=== PATIENT | male | born 1975 | race Two or more races ===

== ENCOUNTER 2020-05-14 08:43 | Day surgery (SDC) | payer OTHER, SELFPAY ==
[~2020-05-14] VITALS: Ht 188 cm; Wt 122.5 kg
[2020-05-14] MEDS ORDERED: ALBUTEROL HFA MDI 90 MCG/ACTUATION 18 GM INH ONE (11:10)
[2020-05-14] MEDS ORDERED: fentaNYL citrate 0.05 MG/ML VIAL ONE (11:10)
[2020-05-14] MEDS ORDERED: SUGAMMADEX SODIUM 200 MG/2 ML VIAL IV ONE (11:10)
[2020-05-14] MEDS ORDERED: SUCCINYLCHOLINE CHLORIDE 200 MG/10 ML VIAL IVP ONE (11:10)
[2020-05-14] MEDS ORDERED: MIDAZOLAM 2 MG/2 ML VIAL ONE (11:10)
[2020-05-14] MEDS ORDERED: GLYCOPYRROLATE 0.2 MG/ML VIAL ONE (11:10)
[2020-05-14] MEDS ORDERED: PROPOFOL 200 MG/20 ML VIAL IV ONE (11:10)
[2020-05-14] MEDS ORDERED: SEVOFLURANE 250 ML BTL INH ONE (11:10)
[2020-05-14] MEDS ORDERED: ONDANSETRON 4 MG/2 ML VIAL ONE (11:10)
[2020-05-14] MEDS ORDERED: ROCURONIUM 50 MG/5 ML VIAL IV ONE (11:10)
[2020-05-14] MEDS ORDERED: DEXAMETHASONE 4 MG/ML VIAL ONE (11:10)
[2020-05-14] MEDS ORDERED: MEPERIDINE 25 MG/ML SYR ONE (12:58)
[2020-05-14] MEDS: MEPERIDINE 25 MG/ML SYR IVP SCH ×2 (13:00→13:10)
[2020-05-14] MEDS ORDERED: HYDROmorphone PFS 2 MG/ML SYR ONE (13:25)
[2020-05-14] MEDS: HYDROmorphone 1 MG/ML AMP IVP SCH ×2 (13:25→13:35)
== END 2020-05-14 14:40 | disposition home or self-care (01) ==
LOC: MFCC 08:43 → MDS 08:43
PROVIDERS: ATTEND Surgery
DX: K60.2 Anal fissure, unspecified (principal); K64.4 Residual hemorrhoidal skin tags; K62.89 Other specified diseases of anus and rectum; K21.9 Gastro-esophageal reflux disease without esophagitis; J45.909 Unspecified asthma, uncomplicated; F17.200 Nicotine dependence, unspecified, uncomplicated; Z79.899 Other long term (current) drug therapy; Z20.828 Contact with and (suspected) exposure to other viral communicable diseases
CPT/HCPCS: 46257; 71045; 88304; J0330; J1100; J1170; J2175; J2250; J2405; J2704; J3010; J3490; J7120; U0003

== ENCOUNTER 2020-05-18 00:08 | Emergency (ER) | payer OTHER, SELFPAY ==
[~2020-05-18] VITALS: Ht 188 cm; Wt 122.5 kg
[2020-05-18 00:27] VITALS: BP 118/78
--- NOTE | 2020-05-18 00:30 | NUR ---
TO LOBBY A/W BED AMBULATORY
--- NOTE | 2020-05-18 00:50 | NUR ---
PT CALLED OUTSIDE AND LOBBY WITH NO ANSWER.
--- NOTE | 2020-05-18 01:00 | NUR ---
PT CALLED IN LOBBY AND OUTSIDE WITH NO ANSWER.
--- NOTE | 2020-05-18 01:05 | NUR ---
PT CALLED IN LOBBY, OUTSIDE, AND VIA PHONE WITH NO ANSWER. PATIENT LEFT WITHOUT BEING SEEN BY DR. GARCIA. NO FURTHER CARE PROVIDED FOR PATIENT.
== END 2020-05-18 01:05 | disposition left against medical advice (07) ==
LOC: MED 00:08
DX: R10.9 Unspecified abdominal pain (principal); Z53.21 Procedure and treatment not carried out due to patient leaving prior to being seen by health care provider

== ENCOUNTER 2021-01-09 01:40 | Inpatient (IN) | payer OTHER, SELFPAY ==
[~2021-01-09] VITALS: Ht 188 cm; Wt 120.2 kg
[2021-01-09 01:48] VITALS: BP 135/92
--- NOTE | 2021-01-09 02:37 | NUR ---
AMBULATED TO ER BED 3
[2021-01-09] MEDS ORDERED: metroNIDAZOLE 500 MG/NS PREMIX 100 ML IV ONE (02:40)
[2021-01-09] MEDS ORDERED: NACL 0.9% 1,000 ML IV ONE (02:40)
[2021-01-09] MEDS ORDERED: LEVOFLOXACIN 500 MG/D5W PREMIX 100 ML IV ONE (02:40)
[2021-01-09] MEDS ORDERED: MORPHINE SULFATE 4 MG/ML SYR IVP ONE ×2 (02:40→05:30)
--- NOTE | 2021-01-09 02:41 | NUR ---
10/10 ABD PAIN AND VOMMITING BLOOD [id number]. HX:HERNIA, KIDNEY STONES, ASTHMA NKA
--- NOTE | 2021-01-09 02:46 | NUR ---
LAB AT BEDSIDE.
--- NOTE | 2021-01-09 02:50 | NUR ---
SWAB COLLECTED AND GIVEN TO ENDER COLE.
[2021-01-09 02:57] LABS: BASOPHILS # (AUTO) 0.1 K/uL (0.00-0.22); BASOPHILS % (AUTO) 0.5 % (0.0-2.0); EOSINOPHILS # (AUTO) 0.2 K/uL (0-0.4); EOSINOPHILS % (AUTO) 1.2 % (0.0-4.0); HEMATOCRIT 45.4 % (36-52); HEMOGLOBIN 15.4 g/dL (12.0-18.0); LYMPHOCYTES # (AUTO) 3.6 K/uL (2.0-11.5); LYMPHOCYTES % (AUTO) 27.4 % (20.5-51.1); MEAN CORPUSCULAR HEMOGLOBIN 30 pg (27-31); MEAN CORPUSCULAR HGB CONC 34 g/dL (33-37); MEAN CORPUSCULAR VOLUME 89.5 fL (80-94); MONOCYTES # (AUTO) 0.8 K/uL (0.8-1.0); MONOCYTES % (AUTO) 5.9 % (1.7-9.3); NEUTROPHILS # (AUTO) 8.5 K/uL (1.8-7.7); PLATELET COUNT (AUTO) 280 K/uL (140-450); RED BLOOD CELL COUNT(AUTO) 5.07 MIL/uL (4.20-6.10); RED CELL DISTRIBUTION WIDTH 15.7 % (11.6-13.7)
[2021-01-09 03:16] LABS: ANION GAP 11.3 (8-16); CREATININE 1.1 mg/dL (0.6-1.3); POTASSIUM 3.3 mmol/L (3.5-5.1); TOTAL BILIRUBIN 0.2 mg/dL (0.0-1.0)
--- NOTE | 2021-01-09 03:55 | NUR ---
pt is resting. eyes closed, equal rise and fall of chest wall. opens eyes to sound. all needs met at this time. bed locked in lowest position, side rails x2.
[2021-01-09] MEDS ORDERED: NACL 0.9% 1,000 ML IV SCH (05:10)
[2021-01-09] MEDS ORDERED: MORPHINE SULFATE 4 MG/ML SYR IVP PRN (05:10)
[2021-01-09] MEDS ORDERED: LEVOFLOXACIN 500 MG/D5W PREMIX 100 ML IV SCH (05:10)
[2021-01-09] MEDS ORDERED: HYDROcodone/APAP 5/325 MG 1 TAB TAB PO PRN (05:10)
[2021-01-09] MEDS ORDERED: ONDANSETRON 4 MG/2 ML VIAL IVP PRN (05:10)
--- NOTE | 2021-01-09 05:29 | NUR ---
pt reported pain 10/10 and requested morphine. explained to pt that morphine is every 4hrs, pt stated ok.
--- NOTE | 2021-01-09 05:39 | NUR ---
morphine given per ermd orders.
[2021-01-09 05:58] VITALS: BP 119/75
--- NOTE | 2021-01-09 05:58 | NUR ---
Patient does not wish to proceed with medical care recommended by . Patient given information related to possible complications, up to and including , which could occur as a result of leaving hospital at this time. Patient verbalizes understanding of risks involved leaving against medical advice. Patient has signed AMA form.
--- NOTE | 2021-01-09 06:13 | NUR ---
S/W DR. MARIANO, INFORMED HIM THAT PATIENT SIGNED OUT AMA.
[2021-01-09] MEDS ORDERED: metroNIDAZOLE 500 MG/NS PREMIX 100 ML IV SCH (13:00)
== END 2021-01-09 05:58 | disposition left against medical advice (07) | DRG 245 ==
LOC: MED 01:40 → MMU 05:10
PROVIDERS: ADMIT Hospitalist; ATTEND Hospitalist
DX: K51.90 Ulcerative colitis, unspecified, without complications (principal); F17.210 Nicotine dependence, cigarettes, uncomplicated; I10 Essential (primary) hypertension; Z20.822 Contact with and (suspected) exposure to COVID-19; J45.909 Unspecified asthma, uncomplicated; K21.9 Gastro-esophageal reflux disease without esophagitis; Z90.49 Acquired absence of other specified parts of digestive tract
CPT/HCPCS: 36415; 80053; 85025; 87040; 96365; 96367; 96375; 99285; G0378; J1956; J2270; J3490

== ENCOUNTER 2021-02-05 05:22 | Emergency (ER) | payer OTHER, SELFPAY ==
[~2021-02-05] VITALS: Ht 188 cm; Wt 119.7 kg
[2021-02-05 05:37] VITALS: BP 150/75
--- NOTE | 2021-02-05 05:37 | NUR ---
46/M BIB SELF C/O RECCURING RLQ ABD PAIN, NAUSEA, VOMITING, BLOODY DIARRHEA WHICH HAPPENED 3 DAYS AGO BUT WORSENED TODAY. PT ALSO COMPLAINING OF THE BUMB/SWELLIN HE HAD ON HIS R ELBOW WHEN HE FELL 3 MONTHS AGO. PMH: KIDNEY STONES, HERNIA, GALL BLADDER REMOVAL, HEMORRHOIDS NKDA
--- NOTE | 2021-02-05 06:21 | NUR ---
DR. DINH AT BEDSIDE EXAMINING PATIENT
[2021-02-05] MEDS: ONDANSETRON 4 MG/2 ML VIAL IVP ONE (07:18)
[2021-02-05] MEDS: KETOROLAC 15 MG/ML VIAL IVP ONE (07:20)
--- NOTE | 2021-02-05 07:21 | NUR ---
REPORT GIVEN TO FRANCISCO BUITRAGO FOR CONTINUITY OF CARE
[2021-02-05 07:22] LABS: ALBUMIN 3.7 g/dL (3.4-5.0); ANION GAP 13.6 (8-16); CARBON DIOXIDE 24.2 mmol/L (21-32); POTASSIUM 3.8 mmol/L (3.5-5.1); TOTAL BILIRUBIN 0.2 mg/dL (0.0-1.0)
[2021-02-05 07:27] LABS: PROTHROMBIN TIME 9.3 secs (10.8-13.4)
[2021-02-05] MEDS: NACL 0.9% 1,000 ML IV SCH (07:29)
[2021-02-05 07:35] LABS: BASOPHILS # (AUTO) 0.1 K/uL (0.00-0.22); BASOPHILS % (AUTO) 0.7 % (0.0-2.0); EOSINOPHILS # (AUTO) 0.2 K/uL (0-0.4); EOSINOPHILS % (AUTO) 1.7 % (0.0-4.0); HEMATOCRIT 42.4 % (36-52); HEMOGLOBIN 14.4 g/dL (12.0-18.0); LYMPHOCYTES # (AUTO) 3.2 K/uL (2.0-11.5); MEAN CORPUSCULAR HEMOGLOBIN 31 pg (27-31); MEAN CORPUSCULAR HGB CONC 34 g/dL (33-37); MONOCYTES # (AUTO) 0.7 K/uL (0.8-1.0); MONOCYTES % (AUTO) 5.9 % (1.7-9.3); NEUTROPHILS # (AUTO) 8.1 K/uL (1.8-7.7); NEUTROPHILS % (AUTO) 65.7 % (42.2-75.2); PLATELET COUNT (AUTO) 237 K/uL (140-450); RED BLOOD CELL COUNT(AUTO) 4.72 MIL/uL (4.20-6.10); RED CELL DISTRIBUTION WIDTH 15.1 % (11.6-13.7); WHITE BLOOD COUNT (AUTO) 12.4 K/uL (4.8-10.8)
[2021-02-05 08:53] VITALS: BP 153/78
--- NOTE | 2021-02-05 08:53 | NUR ---
Patient discharged with v/s stable. Written and verbal after care instructions given and explained. Patient verbalized understanding. Ambulatory with steady gait. All questions addressed prior to discharge. Advised to follow up with PMD.
== END 2021-02-05 08:53 | disposition home or self-care (01) ==
LOC: MED 05:22
DX: K21.9 Gastro-esophageal reflux disease without esophagitis (principal); K64.9 Unspecified hemorrhoids; J45.909 Unspecified asthma, uncomplicated; I10 Essential (primary) hypertension; Z90.49 Acquired absence of other specified parts of digestive tract; Z98.890 Other specified postprocedural states
CPT/HCPCS: 76705; 76770; 80053; 83605; 85025; 85610; 85730; 87040; 96361; 96374; 96375; 99285; J1885; J2405; J7030; Q0092